=== PATIENT | female | born 1955 | race African-American/Black ===

== ENCOUNTER 2022-09-09 14:16 | Inpatient (IN) | payer MEDICARE, OTHER ==
[~2022-09-09] VITALS: Ht 167.6 cm; Wt 75.7 kg
[2022-09-09] MEDS ORDERED: ONDANSETRON 4 MG/2 ML VIAL ONE (14:29)
[2022-09-09] MEDS ORDERED: HYDROMORPHONE 1 MG/1 ML DISP.SYRIN IV ONE (14:30)
[2022-09-09] MEDS ORDERED: IV LACTATED RINGERS SOLUTION 1,000 ML IV ONE ×2 (14:30→16:30)
[2022-09-09] MEDS ORDERED: ONDANSETRON 4 MG/2 ML VIAL IV ONE (14:30)
--- NOTE | 2022-09-09 14:45 | NUR ---
"Plan to admit" per Dr Stokes. ER registration/admitting staff José and Eric notified.
--- NOTE | 2022-09-09 14:45 | NUR ---
Danny lima in ED - 09/09/22 at 1457 by BEN "Plan to admit" per Dr Zuluaga. ER registration/admitting staff José and Eric notified.
[2022-09-09] MEDS ORDERED: SENN-261 PO (14:47)
[2022-09-09] MEDS ORDERED: ASCO500C18 PO (14:47)
[2022-09-09] MEDS ORDERED: AMIN30LI2 PO (14:47)
[2022-09-09] MEDS ORDERED: METO25TA6 PO (14:47)
[2022-09-09] MEDS ORDERED: ENOX40DI SQ (14:47)
[2022-09-09] MEDS ORDERED: ACET-2154 PO (14:47)
[2022-09-09] MEDS ORDERED: DOCU-141 PO (14:47)
[2022-09-09] MEDS ORDERED: FURO-151 PO (14:47)
[2022-09-09] MEDS ORDERED: ONDA4TAB5 PO (14:47)
[2022-09-09] MEDS ORDERED: AMMO385C4 TP (14:47)
[2022-09-09] MEDS ORDERED: HYDR-3972 PO (14:47)
[2022-09-09] MEDS ORDERED: ZINC220T3 PO (14:47)
[2022-09-09 15:35] LABS: HEMATOCRIT 32.6 % (31.2-41.9); MEAN CORPUSCULAR HEMOGLOBIN 30.6 uug (24.7-32.8); MEAN CORPUSCULAR VOLUME 94.2 fL (75.5-95.3); PLATELET COUNT (AUTO) 384 K/uL (179-408)
[2022-09-09 15:58] LABS: ALANINE AMINOTRANSFERASE 13 U/L (14-59); ALKALINE PHOSPHATASE 98 U/L (50-136); ASPARTATE AMINOTRANSFERASE 18 U/L (15-37); BILIRUBIN,DIRECT 0.1 mg/dL (0.0-0.2); BILIRUBIN,TOTAL 0.3 mg/dL (0.2-1.0); CARBON DIOXIDE 28 mmol/L (21-32); CHLORIDE 106 mmol/L (98-107); CREATININE 3.7 mg/dL (0.6-1.3); GLUCOSE 97 mg/dL (74-106); POTASSIUM 4.2 mmol/L (3.5-5.1); TOTAL PROTEIN, SERUM 5.1 g/dL (6.4-8.2)
--- NOTE | 2022-09-09 16:24 | NUR ---
Patient is resting comfortably on gurney with eyes closed, denies nausea, no active vomiting seen since arrival to ER.
[2022-09-09 16:30] LABS: UREA NITROGEN, BLOOD 87 mg/dL (7-18)
[2022-09-09 16:52] LABS: LIPASE 60 U/L (73-393)
--- NOTE | 2022-09-09 18:55 | NUR ---
Patient signed the transfer acknowledgement consent (form [id number]), pending transfer information at this time.
--- NOTE | 2022-09-09 19:09 | NUR ---
Occasional hiccups heard, +facial grimacing seen during hiccups. SBP levels are still in the low 90's, Dr Anderson notified.
--- NOTE | 2022-09-09 19:14 | NUR ---
Dr Anderson is talking to patient's insurance doctor at this time.
[2022-09-09] MEDS ORDERED: IV NS 1000 ML 1,000 ML IV ONE (19:30)
--- NOTE | 2022-09-09 20:50 | NUR ---
EITAN Allen recieved transfer info from [facility]. Patient will be going to [facility] room 407B. Call fro report is . ETA of turkey picker from [facility] ambulance is 2200.
[2022-09-10] MEDS ORDERED: IV NS 1000 ML 1,000 ML IV ONE ×2 (00:30)
[2022-09-10] MEDS ORDERED: MORPHINE SULFATE 2 MG/1 ML DISP.SYRIN IV PRN (03:15)
[2022-09-10] MEDS ORDERED: ONDANSETRON 4 MG/2 ML VIAL IV PRN (03:15)
[2022-09-10] MEDS ORDERED: ALBUMIN HUMAN 25% (12.5 GM/50 ML ) BOTTLE IV PRN (03:45)
[2022-09-10] MEDS: IV NS 1000 ML 1,000 ML IV PRN ×2 (06:01→17:59)
[2022-09-10 06:11] VITALS: BP 93/56
--- NOTE | 2022-09-10 06:47 | NUR ---
Received pt via gurney assisted by 2 RNs. 67 yr old female diagnosed with severe ascites secondary to ARF, malnutrition under Dr. Dr. Hackett. Chief complaint was nausea and vomiting and hypotension. Currently no N/V noted. BP is 93/56. Per patient, she's looking for her laptop. Stated that she brought it with her. RN Viraj said she didn't. He said he'll call [employer]. AOx4. Abdomen with generalized tenderness to palpation and mildly distended. Active bowel sounds noted. Scheduled for Paracentesis today. IV on LFA G 20 infusing well. Pt unable to ambulate. Brought her own wheelchair. Routine admission done. All needs attended. Safety measures observed.
[2022-09-10] MEDS: PANTOPRAZOLE SODIUM 40 MG VIAL IV SCH (08:21)
[2022-09-10 09:32] LABS: *BILIRUBIN,URIN 1+ (NEGATIVE); *BLOOD, URINE 2+ (NEGATIVE); *CLARITY,URINE CLEAR (CLEAR); *COLOR,URINE YELLOW (YELLOW); *KETONES,URINE TRACE (NEGATIVE); *UROBILINOGEN,URINE 0.2 E.U./dl (NORMAL); LEUKOCYTE ESTERASE ,URINE 2+ (NEGATIVE); NITRITE, URINE NEGATIVE (NEGATIVE); PH,URINE 5.5 (5.0-8.0); UGLUCOSE NEGATIVE (NEGATIVE)
[2022-09-10 09:41] LABS: *URINE TOTAL PROTEIN RANDOM 51.7 mg/dL (<150/24HR)
[2022-09-10 11:29] VITALS: BP 93/61
[2022-09-10] MEDS ORDERED: IV NORMAL SALINE 500 ML BAG IV ONE (13:15)
[2022-09-10] MEDS: MIDODRINE HCL 5 MG TABLET PO SCH ×2 (13:30→16:19)
--- NOTE | 2022-09-10 13:32 | NUR ---
Pt. was having low blood pressure of 83/57 HR 80. Reported to DIRECTOR OF EVENT MANAGEMENT(Mona) and received order for NS bolus 500cc and Midodrine 5mg TID and give one dose now. Orders carried out. Will keep monitoring the patient.
[2022-09-10] MEDS: ZINC SULFATE 220 MG CAPSULE PO SCH (15:09)
[2022-09-10] MEDS: ASCORBIC ACID 500 MG TABLET PO SCH (15:09)
--- NOTE | 2022-09-10 15:29 | NUR ---
Spoke with Charles (Ultrasound) if he is aware that pt. is having an order for paracentesis today and he said most likely will not be done today.
[2022-09-10 15:52] VITALS: BP 88/49
--- NOTE | 2022-09-10 16:05 | NUR ---
Per rad paracentesis will be done tmrw.
[2022-09-10] MEDS: PROTEIN SUPPLEMENT (PROSTAT) 30 ML LIQUID PO SCH (16:19)
[2022-09-10] MEDS ORDERED: Medication Not On Formulary EA (Amino Acids/Protein Hydrolys (Pro-Stat Liquid) 30 ML) PO SCH (17:00)
[2022-09-10 18:13] LABS: RBC,URINE 20-50 /HPF (0-3)
[2022-09-10 18:14] LABS: BACTERIA,URINE FEW /HPF (NONE SEEN); SQUAMOUS EPITHELIAL CELL,UR FEW /HPF (NONE SEEN); WBC,URINE 80-100 /HPF (0-3)
--- NOTE | 2022-09-10 18:33 | NUR ---
Pt. noted to be stable during the shift. Compliance with the care given. All needs attended and met. No c/o pain. Call light within reach. All safety measure applied. Will keep monitoring the patient.
--- NOTE | 2022-09-10 19:16 | NUR ---
Pharmacist called and said in case if paracentesis is done tonight later, endorse the material handler 2nd shift to call the night pharmacy services and get permission to take Albumin from the [employer] machine. Endorsement given to the material handler 2nd shift nurse.
[2022-09-10 20:00] VITALS: BP 93/65
[2022-09-11] VITALS: BP 90/54
--- NOTE | 2022-09-11 04:24 | NUR ---
IV ON LFA DISLODGED, RESTARTED IV ON L HAND G 22. IVF INFUSING WELL.
[2022-09-11 06:38] LABS: HEMATOCRIT 31.6 % (31.2-41.9); MEAN CORPUSCULAR VOLUME 94.8 fL (75.5-95.3); PLATELET COUNT (AUTO) 445 K/uL (179-408)
--- NOTE | 2022-09-11 07:00 | NUR ---
critical lab value noted. albumin 1.4. notified.
[2022-09-11 07:15] LABS: BILIRUBIN,TOTAL 0.3 mg/dL (0.2-1.0); CREATININE 2.9 mg/dL (0.6-1.3); MAGNESIUM 2.1 mg/dL (1.8-2.4); PHOSPHOROUS 4.8 mg/dL (2.5-4.9); POTASSIUM 3.3 mmol/L (3.5-5.1); TOTAL PROTEIN, SERUM 4.8 g/dL (6.4-8.2)
[2022-09-11 08:00] VITALS: BP 89/57
[2022-09-11] MEDS ORDERED: Medication Not On Formulary EA (Ascorbic Acid (Vitamin C) 1 CAP) PO SCH (09:00)
[2022-09-11] MEDS: FUROSEMIDE 40 MG TABLET PO SCH (09:00)
[2022-09-11] MEDS ORDERED: Medication Not On Formulary EA (Zinc Sulfate (Zinc) 1 TAB) PO SCH (09:00)
--- NOTE | 2022-09-11 09:00 | NUR ---
per juan alberto of intervention radiologist paracentesis will be done in the afternoon around [phone].
[2022-09-11] MEDS: MIDODRINE HCL 5 MG TABLET PO SCH ×3 (09:20→17:09)
[2022-09-11] MEDS: ASCORBIC ACID 500 MG TABLET PO SCH (09:21)
[2022-09-11] MEDS: PANTOPRAZOLE SODIUM 40 MG VIAL IV SCH (09:21)
[2022-09-11] MEDS: ZINC SULFATE 220 MG CAPSULE PO SCH (09:21)
[2022-09-11] MEDS: PROTEIN SUPPLEMENT (PROSTAT) 30 ML LIQUID PO SCH ×3 (09:23→17:00)
--- NOTE | 2022-09-11 09:39 | NUR ---
PRO STAT SUPPLEMENT OUT OF STOCK PER DIETARY
[2022-09-11 11:49] VITALS: BP 107/76
[2022-09-11 15:08] LABS: THYROID STIMULATING HORMONE 3.314 mIU/mL (0.358-3.740)
[2022-09-11] MEDS ORDERED: ALBUMIN HUMAN 25% 100 ML IV ONE (16:15)
--- NOTE | 2022-09-11 16:15 | NUR ---
US GUIDED PARACENTESIS DONE. 7L OUT. WILL START ALBUMIN ADMINISTRATRION.
[2022-09-11 16:31] VITALS: BP 99/55
--- NOTE | 2022-09-11 17:46 | NUR ---
SHIFT NOTE. PT AOX2-3, NO SOB NOTED. BLOOD PRESSURE ON LOW SIDE SCHEDULED MIDODRINE WAS GIVEN ORDERED. S/P US GUIDED PARACENTESIS DONE WITH 7L OUTPUT. ADMINISTERED ALBUMIN PER ORDERED AFTER PARACENTESIS. NO ADVERSE REACTION NOTED. PT CALM AND RELAX. RELIEVED OF ABDOMINAL PAIN AFTER PROCEDURE PER PT. SWALLOW EVAL PENDING. HELD MORNING LASIX DOSE PER BAT[place]LAN N.P BECAUSE OF DECREASE BP. SR ON TELE 80-95HR. SKIN INTACT. CALL LIGHT IN BEDSIDE. BED LOCKED. ALL NEEDS MET. WILL ENDORSED TO NOC SHIFT.
[2022-09-11 20:00] VITALS: BP 89/51
[2022-09-12] VITALS: BP 93/61
[2022-09-12 04:00] VITALS: BP 95/53
[2022-09-12] MEDS: IV NS 1000 ML 1,000 ML IV PRN ×2 (06:15→20:47)
[2022-09-12] MEDS: PANTOPRAZOLE SODIUM 40 MG TABLET.DR PO SCH (06:20)
--- NOTE | 2022-09-12 06:54 | NUR ---
SLEPT INTERMITTENTLY THROUGH OUT THE NIGHT. AFTER PARACENTESIS, WEIGHT IS 159.3 LBS. OCCULT BLOOD PENDING NO BM YET. ALL NEEDS ATTENDED. WAITING FOR SWALLOW EVAL. ASPIRATION PRECAUTIONS OBSERVED. WILL ENDORSE TO DAY SHIFT.
[2022-09-12 08:06] LABS: *IMMUNOGLOBULIN G, SERUM 787 mg/dL (586-1602); IMMUNOGLOBULIN M, SERUM 26 mg/dL (26-217)
[2022-09-12] MEDS: ASCORBIC ACID 500 MG TABLET PO SCH (08:20)
[2022-09-12] MEDS: FUROSEMIDE 40 MG TABLET PO SCH (08:20)
[2022-09-12] MEDS: ZINC SULFATE 220 MG CAPSULE PO SCH (08:20)
[2022-09-12] MEDS: CEFTRIAXONE 1 G in IV DEXTROSE 5% 50 ML IV SCH (08:21)
[2022-09-12] MEDS: MIDODRINE HCL 5 MG TABLET PO SCH ×3 (08:21→16:10)
[2022-09-12] MEDS: PROTEIN SUPPLEMENT (PROSTAT) 30 ML LIQUID PO SCH ×3 (08:21→16:27)
[2022-09-12 09:12] LABS: HEMATOCRIT 30.6 % (31.2-41.9); MEAN CORPUSCULAR HEMOGLOBIN 31.5 uug (24.7-32.8); MEAN CORPUSCULAR VOLUME 95.6 fL (75.5-95.3); PLATELET COUNT (AUTO) 411 K/uL (179-408)
[2022-09-12 09:35] LABS: CREATININE 2.4 mg/dL (0.6-1.3); PHOSPHOROUS 4.2 mg/dL (2.5-4.9); POTASSIUM 3.1 mmol/L (3.5-5.1)
[2022-09-12] MEDS: CYANOCOBALAMIN 1000 MCG/ML VIAL IM SCH (09:46)
[2022-09-12] MEDS: POTASSIUM CHLORIDE 10 MEQ TAB.PRT.SR PO SCH ×2 (11:00→14:09)
[2022-09-12 11:54] VITALS: BP 116/66
[2022-09-12 14:06] LABS: A/G RATIO 0.6 (0.7-1.7); ALBUMIN 1.7 g/dL (2.9-4.4); ALPHA-1-GLOBULIN 0.3 g/dL (0.0-0.4); ALPHA-2-GLOBULIN 1.1 g/dL (0.4-1.0); BETA GLOBULIN 0.7 g/dL (0.7-1.3); GAMMA GLOBULIN 0.8 g/dL (0.4-1.8); GLOBULIN, TOTAL 2.9 g/dL (2.2-3.9); M-SPIKE Not Observed g/dL (Not Observed)
[2022-09-12 14:06] LABS: A/G RATIO 0.5 (0.7-1.7); ALBUMIN 1.5 g/dL (2.9-4.4); ALPHA-1-GLOBULIN 0.3 g/dL (0.0-0.4); BETA GLOBULIN 0.7 g/dL (0.7-1.3); GAMMA GLOBULIN 1.2 g/dL (0.4-1.8); GLOBULIN, TOTAL 3.1 g/dL (2.2-3.9); M-SPIKE Not Observed g/dL (Not Observed)
[2022-09-12] MEDS: ENSURE ENLIVE (VAN) 240 ML LIQUID PO SCH ×2 (15:10→16:10)
[2022-09-12 15:51] VITALS: BP 101/54
--- NOTE | 2022-09-12 16:58 | NUR ---
Pt. noted to be stable during the shift. No acute distress noted. Compliance with the care given. No c/o pain. Able to make need known. All safety measure applied. No change in condition noted. Will keep monitoring the patient.
--- NOTE | 2022-09-12 18:29 | NUR ---
MRI check list done and it is in patient chart.
--- NOTE | 2022-09-12 18:37 | NUR ---
Went to lab to get the bottle for 24 hours urine collection but there was no bottle available for collecting sample. Sarika said we need to order from [facility] but over the weekend might take time.
[2022-09-12 19:26] LABS: *OCCULT BLOOD STOOL NEGATIVE (NEGATIVE)
[2022-09-12 20:30] VITALS: BP 95/55
--- NOTE | 2022-09-12 21:30 | NUR ---
CALLED DOWN TO THE LAB. 24 HOUR COLLECTION BOTTLE COLLECTED. PER CONCRETE TESTER, DISCARD PATIENTS FIRST URINE AND THEN COLLECT AND RECORD START TIME OF URINE COLLECTION.
[2022-09-12] MEDS: IV D5 1/2 NS 1000 ML 1,000 ML IV SCH (21:53)
--- NOTE | 2022-09-12 23:00 | NUR ---
CLARIFIED WITH ARTURO ROMANO THAT PATIENT HAS PURE-WICK. OK PER AUTOPSY ASSISTANT TO COLLECT 24 HOUR URINE WITH PURE-WICK.
--- NOTE | 2022-09-13 00:15 | NUR ---
24 HOUR URINE COLLECTION STARTED.
[2022-09-13 04:15] VITALS: BP 94/56
[2022-09-13] MEDS: PANTOPRAZOLE SODIUM 40 MG TABLET.DR PO SCH (06:25)
[2022-09-13 07:37] LABS: HEMATOCRIT 29.9 % (31.2-41.9); MEAN CORPUSCULAR HEMOGLOBIN 31.2 uug (24.7-32.8); MEAN CORPUSCULAR VOLUME 95.8 fL (75.5-95.3); PLATELET COUNT (AUTO) 405 K/uL (179-408)
[2022-09-13 07:50] LABS: CREATININE 2.3 mg/dL (0.6-1.3); MAGNESIUM 1.9 mg/dL (1.8-2.4); PHOSPHOROUS 3.6 mg/dL (2.5-4.9); POTASSIUM 3.6 mmol/L (3.5-5.1)
[2022-09-13] MEDS: CYANOCOBALAMIN 1000 MCG/ML VIAL IM SCH (08:13)
[2022-09-13] MEDS: ASCORBIC ACID 500 MG TABLET PO SCH (08:13)
[2022-09-13] MEDS: MIDODRINE HCL 5 MG TABLET PO SCH ×3 (08:13→16:17)
[2022-09-13] MEDS: PROTEIN SUPPLEMENT (PROSTAT) 30 ML LIQUID PO SCH ×3 (08:14→16:10)
[2022-09-13] MEDS: ZINC SULFATE 220 MG CAPSULE PO SCH (08:14)
[2022-09-13] MEDS: ENSURE ENLIVE (VAN) 240 ML LIQUID PO SCH ×3 (08:14→16:10)
[2022-09-13] MEDS: FUROSEMIDE 40 MG TABLET PO SCH (08:19)
[2022-09-13] MEDS: CEFTRIAXONE 1 G in IV DEXTROSE 5% 50 ML IV SCH (08:20)
[2022-09-13] MEDS: IV D5 1/2 NS 1000 ML 1,000 ML IV SCH (11:22)
[2022-09-13 11:44] VITALS: BP 106/56
[2022-09-13] MEDS ORDERED: CYANOCOBALAMIN 1000 MCG/ML VIAL IM SCH (15:15)
[2022-09-13] MEDS: FOLIC ACID 1 MG TABLET PO SCH (15:40)
--- NOTE | 2022-09-13 16:22 | NUR ---
PT. noted to be stable during the shift. MRI done. No c/o pain. All needs attended and met. Compliance with the care given. All safety measure applied. Call light within reach. No c/o dizziness and headache and nausea/vomiting. Will keep monitoring the patient.
[2022-09-13 16:35] VITALS: BP 111/72
[2022-09-13] MEDS ORDERED: CEphaleXIN 500 MG CAPSULE PO SCH (17:00)
[2022-09-13] MEDS: FERROUS SULFATE 325 MG TABEC PO SCH (20:19)
[2022-09-13] MEDS: CEphaleXIN 250 MG CAPSULE PO SCH (20:19)
[2022-09-13 20:31] VITALS: BP 100/55
[2022-09-14] MEDS: IV D5 1/2 NS 1000 ML 1,000 ML IV SCH (04:30)
--- NOTE | 2022-09-14 04:31 | NUR ---
PATIENT HAS NO IV ACCESS. AWARE.
[2022-09-14 04:50] VITALS: BP 99/50
[2022-09-14] MEDS: PANTOPRAZOLE SODIUM 40 MG TABLET.DR PO SCH (06:13)
[2022-09-14 07:27] LABS: CREATININE 2.1 mg/dL (0.6-1.3); MAGNESIUM 1.8 mg/dL (1.8-2.4); PHOSPHOROUS 3.4 mg/dL (2.5-4.9); POTASSIUM 3.5 mmol/L (3.5-5.1)
[2022-09-14 07:28] LABS: HEMATOCRIT 30.2 % (31.2-41.9); MEAN CORPUSCULAR HEMOGLOBIN 31.2 uug (24.7-32.8); MEAN CORPUSCULAR VOLUME 95.4 fL (75.5-95.3); PLATELET COUNT (AUTO) 390 K/uL (179-408)
[2022-09-14] MEDS: PROTEIN SUPPLEMENT (PROSTAT) 30 ML LIQUID PO SCH ×2 (08:00→12:01)
[2022-09-14] MEDS: MIDODRINE HCL 5 MG TABLET PO SCH ×2 (08:52→12:27)
[2022-09-14] MEDS: ASCORBIC ACID 500 MG TABLET PO SCH (08:53)
[2022-09-14] MEDS: FERROUS SULFATE 325 MG TABEC PO SCH (08:53)
[2022-09-14] MEDS: FOLIC ACID 1 MG TABLET PO SCH (08:53)
[2022-09-14] MEDS: ZINC SULFATE 220 MG CAPSULE PO SCH (08:53)
[2022-09-14] MEDS: CEphaleXIN 250 MG CAPSULE PO SCH (08:53)
[2022-09-14] MEDS: ENSURE ENLIVE (VAN) 240 ML LIQUID PO SCH ×2 (09:00→12:01)
[2022-09-14] MEDS ORDERED: CYANOCOBALAMIN 1000 MCG/ML VIAL IM SCH (09:00)
[2022-09-14] MEDS: FUROSEMIDE 40 MG TABLET PO SCH (09:05)
[2022-09-14] MEDS ORDERED: CEPH250C PO (10:29)
[2022-09-14] MEDS ORDERED: FOLI1TAB94 PO (10:29)
[2022-09-14] MEDS ORDERED: FERR325T28 PO (10:29)
[2022-09-14] MEDS ORDERED: MIDO5TAB4 PO (10:29)
[2022-09-14 11:35] VITALS: BP 102/55
[2022-09-14 12:27] VITALS: BP 105/56
--- NOTE | 2022-09-14 14:28 | NUR ---
report given to [facility]
--- NOTE | 2022-09-14 15:42 | NUR ---
patient discharged to snf, with story writer, patient is in stable condition, alert, oriented x2-3 to her baseline. belongings are accounted and signed, no IV access on patient, ID removed, raya intact, draining yellow color urine, no acute distress noted.
[2022-09-16 02:06] LABS: AFP, TUMOR MARKER 3.6 ng/mL (0.0-9.2)
[2022-09-16 16:06] LABS: *PEU ALBUMIN, 24 Note: % (.); *PEU TP24 75 mg/24 hr (30-150)
== END 2022-09-14 15:50 | DRG 374 ==
LOC: ER 14:16 → TELE3 09-10 03:20 → MEDSURG3 09-12 07:55
PROVIDERS: ADMIT Nurse Practitioner Acute Care; ATTEND Nurse Practitioner Acute Care
PROC: 0W9G3ZZ Drainage of Peritoneal Cavity, Percutaneous Approach (ICD-10-PCS; principal; 2022-09-11)
DX: C78.6 Secondary malignant neoplasm of retroperitoneum and peritoneum (principal); N17.0 Acute kidney failure with tubular necrosis; N39.0 Urinary tract infection, site not specified; E46 Unspecified protein-calorie malnutrition; C78.7 Secondary malignant neoplasm of liver and intrahepatic bile duct; C78.00 Secondary malignant neoplasm of unspecified lung; C56.2 Malignant neoplasm of left ovary; R18.0 Malignant ascites; R11.2 Nausea with vomiting, unspecified; D75.839 Thrombocytosis, unspecified; E87.6 Hypokalemia; G89.29 Other chronic pain; K80.20 Calculus of gallbladder without cholecystitis without obstruction; Z85.43 Personal history of malignant neoplasm of ovary; N18.30 Chronic kidney disease, stage 3 unspecified; I95.9 Hypotension, unspecified; I12.9 Hypertensive chronic kidney disease with stage 1 through stage 4 chronic kidney disease, or unspecified chronic kidney disease; D63.8 Anemia in other chronic diseases classified elsewhere; Z68.27 Body mass index [BMI] 27.0-27.9, adult; D47.2 Monoclonal gammopathy; E53.8 Deficiency of other specified B group vitamins; D72.829 Elevated white blood cell count, unspecified; K44.9 Diaphragmatic hernia without obstruction or gangrene; D35.02 Benign neoplasm of left adrenal gland
CPT/HCPCS: 36415; 71045; 71250; 74181; 82105; 82378; 82746; 82784; 83550; 83605; 83690; 83735; 83970; 84100; 84155; 84156; 84165; 84300; 84443; 84484; 85025; 85610; 85730; 86301; 86334; 87040; 93005; A4663; A6209; C9113; G0378; J0696; J1170; J2405; J3420; J7040; J7120; P9047